=== PATIENT | male | born 1935 | race Caucasian/White ===

== ENCOUNTER 2016-06-12 17:08 | Emergency (ER) | payer OTHER ==
[~2016-06-12] VITALS: Ht 172.7 cm; Wt 90.7 kg
[~2016-06-12 17:08] MED LIST: HYDROXYZINE50 MG PO; PREDNISONE 10MG10 M1 PO
--- NOTE | 2016-06-12 18:32 | ED HAND/WRIST INJURY COMPLAINT ---
History of Present Illness General Chief Complaint: Laceration Procedure Stated Complaint: LAC TO L PINKY X 1 HR AGO. PT ON COUMADIN Source: patient Exam Limitations: no limitations Vital Signs & Intake/Output Vital Signs & Intake/Output Vital Signs Date Time Temp Pulse Resp B/P Pulse O2 O2 Flow FiO2 Ox Delivery Rate 06/12 1856 98.3 60 20 158/79 96 Room Air 06/12 1713 97.9 68 16 178/100 95 Room Air Allergies Coded Allergies: MDX - Amlodipine (AMLODIPINE) (HYPOTENSIVE 07/23/15) MDX - Epinephrine (EPINEPHRINE) (TACHYCARDIA 07/23/15) MDX - Sulfadoxine (SULFADOXINE) (HALLUCINATES 07/23/15) Reconcile Medications Labetalol HCl 100 MG TABLET 1 TAB PO BID BP (Reported) Omeprazole 20 MG CAPSULE.DR 1 CAP PO DAILY ACID REFLUX (Reported) Spironolactone 25 MG TABLET 1 TAB PO DAILY UNK (Reported) Zolpidem Tartrate 10 MG TABLET 1 TAB PO QPMP INSOMNIA (Reported) Triage Note: PT STATES HE CUT HIS LEFT PINKY FINGER ON THE POTATOE LARA AND HE IS ON COUMADIN. PT STATES HE CAN'T STOP THE BLEEDING. Triage Nurses Notes Reviewed? yes Occurred: just prior to arrival Duration: hour(s):, constant, continues in ED Timing: recent history Injury Environment: home Severity: moderate, severe Pain/Injury Location: Left: 5th finger. Method of Injury: laceration HPI: 81-year-old male comes into emergency room with complaints of bleeding to his left finger after he was cutting potatoes. Cut his finger by accident. Mild throbbing pain. Patient is on Coumadin. Patient has had associated bleeding. Denies any other associated symptoms. Tetanus shot the day. (DAVID PLASCENCIA) Past History Travel History Traveled to [place] past 21 day No Medical History Any Pertinent Medical History? see below for history Neurological: NOCTURNAL MYOCLONIC EVENTS Cardiovascular: AFIB, hypertension Gastrointestinal: GERD, hiatal hernia Other Medical Hx: Atrial fibrillation, hypertension History of MRSA: No History of VRE: No History of CDIFF: No Surgical History Surgical History: non-contributory Psychosocial History Who do you live with Patient/Self What is your primary language Setswana Tobacco Use: Never used ETOH Use: occasional use Illicit Drug Use: denies illicit drug use Family History Hx Contributory? No (DAVID PLASCENCIA) Review of Systems Review of Systems Constitutional: Reports: no symptoms. EENTM: Reports: no symptoms. Respiratory: Reports: no symptoms. Cardiovascular: Reports: no symptoms. GI: Reports: no symptoms. Genitourinary: Reports: no symptoms. Musculoskeletal: Reports: no symptoms. Skin: Reports: see HPI. Neurological/Psychological: Reports: no symptoms. Hematologic/Endocrine: Reports: see HPI. Immunologic/Allergic: Reports: no symptoms. All Other Systems: Reviewed and Negative (DAVID PLASCENCIA) Physical Exam Physical Exam General Appearance: well developed/nourished Head: atraumatic Eyes: Bilateral: normal appearance. Ears, Nose, Throat: normal ENT inspection, hearing grossly normal Neck: normal inspection Cardiovascular/Respiratory: no respiratory distress Back: normal inspection Hand Left: 5th finger, small skin avulsion,nothing suturable, bleeding actively, Hand Right: normal inspection, normal range of motion Neurologic/Tendon: normal sensation, normal motor functions, normal tendon functions, responds to pain, no evidence tendon injury, no pulse deficit Skin: intact, normal color, warm/dry Lymphatic: no anterior cervical kyara (DAVID PLASCENCIA) Progress Differential Diagnosis: cellulitis, contusion, fracture, gout, paronychia, septic arthritis, sprain, tenosynovitis Plan of Care: 06/12/2016 6:54:30 PM Pinky finger dressed with Kaltostat dressing and compression wrap. There is no bleeding through the dressing. Patient will leave it in place for 3 days. Return if any other concerns. Hold your Coumadin tomorrow because her INR was high the other day. Contact your regular doctor. Return if any other concerns. Wound was irrigated with peroxide and saline. (DAVID PLASCENCIA) Departure Departure Disposition: HOME OR SELF CARE Condition: Stable Clinical Impression Primary Impression: Skin avulsion Referrals: SAMY ZUNIGA MD (PCP/Family) Additional Instructions: Keep dressing in place for 3 days. Soak in warm water in 3 days to remove in her dressing. Return if any recurrent bleeding or any other concerns worsening symptoms. Please go over all results of today's visit with your primary care doctor. Contact your primary care doctor to let them know you were here in the emergency room. There may be nonspecific findings which may not be related to your visit today here in the emergency room but may require further evaluation and chronic monitoring by your primary care doctor. If you had a laceration today the chance of foreign body always remains. You should follow-up with your primary care doctor for recheck in 3-5 days for a wound check. If you had an x-ray done there is a chance that a fracture could have been missed on initial read and you should follow-up with your primary care doctor for repeat x-rays if symptoms persist. If your blood pressure was elevated here in the emergency room please have rechecked by her primary care doctor within the next 48 hours by your primary care doctor. If you were prescribed a narcotic here in the emergency room or any type of controlled substances you're not allowed to drive while taking this medication or operate any type of heavy machinery. Narcotics can make you feel lightheaded dizziness nausea and can cause constipation. You may need to flower picker a stool softener. Thank you for choosing [facility] emergency room. Please return to the emergency room immediately if you have any other concerns worsening of symptoms. Departure Forms: Customer Survey General Discharge Information (DAVID PLASCENCIA) PA/MANAGER PUBLIC Co-Sign Statement Statement: ED Attending supervision documentation- [x] I saw and evaluated the patient. I have also reviewed all the pertinent lab results and diagnostic results. I agree with the findings and the plan of care as documented in the PA's/MANAGER PUBLIC's documentation. [] I have reviewed the ED Record and agree with the PA's/MANAGER PUBLIC's documentation. [] Additions or exceptions (if any) to the PAs/MANAGER PUBLIC's note and plan are summarized below: [] (ROMMEL TORRES DO
[2016-06-12] MEDS ORDERED: SPIRONOLACTONE25 M1 PO (18:42)
[2016-06-12] MEDS ORDERED: OMEPRAZOLE20 M2 PO (18:42)
[2016-06-12] MEDS ORDERED: LABETALOL HCL100 M1 PO (18:43)
[2016-06-12] MEDS ORDERED: ZOLPIDEM TARTRA10 M1 PO (18:43)
[2016-06-12 18:56] VITALS: BP 158/79
== END 2016-06-12 19:00 ==
LOC: ERH 17:08
DX: S61.217A Laceration without foreign body of left little finger without damage to nail, initial encounter (principal); W26.8XXA Contact with other sharp object(s), not elsewhere classified, initial encounter; Z79.01 Long term (current) use of anticoagulants

== ENCOUNTER 2016-10-18 23:26 | Emergency (ER) | payer OTHER ==
[~2016-10-18] VITALS: Ht 172.7 cm; Wt 93.0 kg
[~2016-10-18 23:26] MED LIST changes: +LABETALOL HCL100 M1 PO; +OMEPRAZOLE20 M2 PO; +SPIRONOLACTONE25 M1 PO; +ZOLPIDEM TARTRA10 M1 PO
[2016-10-18 23:55] LABS: ABSOLUTE BASOPHIL COUNT 0 /CUMM (0.0-0.2); ABSOLUTE EOSINOPHIL COUNT 0.4 /CUMM (0.0-0.7); ABSOLUTE GRANULOCYTE CT 2.8 /CUMM (1.4-6.5); ABSOLUTE LYMPH COUNT 1.1 /CUMM (1.2-3.4); ABSOLUTE MONOCYTE COUNT 0.5 /CUMM (0.10-0.60); BASOPHIL % 0.8 % (0.0-2.0); EOSINOPHIL % 8.7 % (0-5); GRANULOCYTE % 57.8 % (42.2-75.2); HEMATOCRIT 38.9 % (42-52); MEAN CORPUSCULAR HGB 31.1 PG (27.0-31.0); MEAN CORPUSCULAR VOLUME 91.7 FL (80.0-94.0); MEAN PLATELET VOLUME 7.9 FL (7.4-10.4); PLATELET COUNT 201 /CUMM (130-400); RBC DISTRIBUTION WIDTH 13.9 % (11.5-14.5); RED BLOOD CELL CT 4.24 /CUMM (4.70-6.10); WHITE BLOOD CELL COUNT 4.9 /CUMM (4.8-10.8)
[2016-10-19 00:15] LABS: PT 37.3 SEC (9.4-12.5); PTT 46 SEC (25-37)
--- NOTE | 2016-10-19 00:59 | ED CARDIAC/CP/PALPITATIONS ---
History of Present Illness General Chief Complaint: Chest Pain Stated Complaint: PT C/O CHEST HEAVINESS S/P ? TAKING BP MEDS Source: patient, old records Exam Limitations: no limitations Vital Signs & Intake/Output Vital Signs & Intake/Output Vital Signs Date Time Temp Pulse Resp B/P B/P Pulse O2 O2 Flow FiO2 Mean Ox Delivery Rate 10/19 0441 52 16 140/83 97 Room Air Room Air 10/19 0243 54 16 139/78 98 Room Air 10/19 0054 97 Room Air 10/19 0054 96.6 70 18 150/82 97 Room Air 10/18 2337 98.5 62 20 176/78 97 Room Air ED Intake and Output 10/19 0000 10/18 1200 Intake Total Output Total Balance Patient 205 lb Weight Weight Reported by Patient Measurement Method Allergies Coded Allergies: MDX - Amlodipine (AMLODIPINE) (HYPOTENSIVE 07/23/15) MDX - Epinephrine (EPINEPHRINE) (TACHYCARDIA 07/23/15) MDX - Sulfadoxine (SULFADOXINE) (HALLUCINATES 07/23/15) Reconcile Medications Labetalol HCl 100 MG TABLET 1 TAB PO BID BP (Reported) Omeprazole 20 MG CAPSULE.DR 1 CAP PO DAILY ACID REFLUX (Reported) Spironolactone 25 MG TABLET 1 TAB PO DAILY UNK (Reported) Zolpidem Tartrate 10 MG TABLET 1 TAB PO QPMP INSOMNIA (Reported) Triage Note: TRIAGE: PATIENT TO ER FROM HOME REPORTS "REALIZED I FORGOT TO TAKE MY BP MED, TOOK IT LATE, THEN ABOUT 11PM I STATED HAVING CHEST PRESSURE AND SOB, BUT I THINK IT WAS RELATED TO MY BP. I KNOW I'M IN AFIB, ALWAYS IN AFIB BUT IT DOESN'T FEEL RAPID." HR:62-69 AFIB, BP:176/78, O2:97%RA, NO ACUTE DISTRESS NOTED. Triage Nurses Notes Reviewed? yes HPI: Patient had accidentally taken an extra labetalol this evening. Patient was concerned about it was laying in bed when he began to feel substernal pressure. There is no radiation. The pressure sensation lasted approximately 10 minutes in the morning away on its own. While he had the pressure sensation he rated it a 4 out of 10. It is currently a 0 out of 10. Denies any shortness of breath, nausea or vomiting. There was no diaphoresis. Patient comes in for evaluation. Past History Travel History Traveled to [place] past 21 day No Medical History Any Pertinent Medical History? see below for history Neurological: NOCTURNAL MYOCLONIC EVENTS Cardiovascular: AFIB, hypertension Gastrointestinal: GERD, hiatal hernia Other Medical Hx: Atrial fibrillation, hypertension History of MRSA: No History of VRE: No History of CDIFF: No Surgical History Surgical History: non-contributory Psychosocial History Who do you live with Patient/Self What is your primary language Russian Tobacco Use: Quit >30 days ago ETOH Use: denies use Illicit Drug Use: denies illicit drug use Family History Hx Contributory? No Review of Systems Review of Systems Constitutional: Reports: no symptoms. EENTM: Reports: no symptoms. Respiratory: Reports: no symptoms. Cardiovascular: Reports: see HPI, chest pain. GI: Reports: no symptoms. Genitourinary: Reports: no symptoms. Musculoskeletal: Reports: no symptoms. Skin: Reports: no symptoms. Neurological/Psychological: Reports: no symptoms. Hematologic/Endocrine: Reports: no symptoms. Immunologic/Allergic: Reports: no symptoms. All Other Systems: Reviewed and Negative Physical Exam Physical Exam General Appearance: well developed/nourished, alert, awake Head: atraumatic, normal appearance Eyes: Bilateral: PERRL, EOMI. Ears, Nose, Throat: normal pharynx, normal ENT inspection, hearing grossly normal Neck: normal inspection, supple, full range of motion Respiratory: normal breath sounds, chest non-tender, no respiratory distress, lungs clear Cardiovascular: regular rate/rhythm, normal peripheral pulses Gastrointestinal: normal bowel sounds, soft, non-tender, no organomegaly Back: normal inspection, normal range of motion Extremities: normal inspection, normal capillary refill, normal range of motion, no edema Neurologic/Psych: no motor/sensory deficits, awake, alert, oriented x 3, normal mood/affect Skin: intact, normal color, warm/dry Lymphatic: no anterior cervical kyara Core Measures ACS in differential dx? Yes Severe Sepsis Present: No Septic Shock Present: No Progress Differential Diagnosis: AMI, cholecystitis, costochondritis, musculoskeletal pain, myocarditis, pericarditis, pneumonia, pneumothorax, pulmonary embolism Plan of Care: Orders Procedure Date/time Status TROPONIN LEVEL 10/19 0330 Complete Telemetry/Ethylene Plant Helper 10/19 0059 Active TROPONIN LEVEL 10/19 2335 Complete PARTIAL THROMBOPLASTIN TIME 10/19 2335 Complete PROTHROMBIN TIME 10/19 2335 Complete COMPREHENSIVE METABOLIC PANEL 10/19 2335 Complete CBC WITHOUT DIFFERENTIAL 10/19 2335 Complete EKG 10/18 2328 Active Laboratory Tests 10/19/16 0329: Troponin I < 0.01 10/18/16 2344: Anion Gap 10, Estimated GFR > 60, BUN/Creatinine Ratio 17.3, Glucose 102 H, Calcium 8.7, Total Bilirubin 0.5, AST 15 L, ALT 35, Alkaline Phosphatase 60, Troponin I < 0.01, Total Protein 6.3, Albumin 3.7, Globulin 2.6, Albumin/ Globulin Ratio 1.4, PT 37.3 H, INR 3.60 H, APTT 46 H, CBC w Diff NO MAN DIFF REQ, RBC 4.24 L, MCV 91.7, MCH 31.1 H, RDW 13.9, MPV 7.9, Gran % 57.8, Lymphocytes % 22.2, Monocytes % 10.5 H, Eosinophils % 8.7 H, Basophils % 0.8, Absolute Granulocytes 2.8, Absolute Lymphocytes 1.1 L, Absolute Monocytes 0.5, Absolute Eosinophils 0.4, Absolute Basophils 0, PUBS MCHC 34.0 Initial ED EKG: AFIB, nonspecific ST T wave chg Prior EKG: unchanged Departure Departure Disposition: HOME OR SELF CARE Condition: Stable Clinical Impression Primary Impression: Chest pain, unspecified Qualifiers: Chest pain type: other chest pain Qualified Code: R07.89 - Other chest pain Referrals: NADIA GALARZA,SAMY (PCP/Family) CELIA GALARZA,TOMI Magdaleno Additional Instructions: RETURN FOR ANY CONCERNS Departure Forms: Customer Survey General Discharge Information Critical Care Note Critical Care Note Critical Care Time: non-applicable
[2016-10-19 04:41] VITALS: BP 140/83
== END 2016-10-19 04:42 ==
LOC: ERH 23:26
PROVIDERS: Emergency Medicine
DX: R07.89 Other chest pain (principal)
CPT/HCPCS: 93005; 93010

== ENCOUNTER 2018-02-11 10:02 | Emergency (ER) | payer OTHER ==
[~2018-02-11] VITALS: Ht 172.7 cm; Wt 86.2 kg
[~2018-02-11 10:02] MED LIST changes: +CIPRO500 M1 PO; +COUMADIN2.5 M1 PO; +COUMADIN5 M2 PO; +FLAGYL500 MG PO; +METAMUCIL0.52 GM PO; +MUCINEX1200 M1 PO; +MUCINEX600 M1 PO; +PROBIOTIC1 EACH PO; +VITAMIN B-121000 MC3 PO; +VITAMIN D2000 UNIT PO
--- NOTE | 2018-02-11 10:07 | ED CARDIAC/CP/PALPITATIONS ---
History of Present Illness General Chief Complaint: Dizziness Stated Complaint: DIZZY/SLOW AFIB Source: patient, old records, EMS Exam Limitations: no limitations Vital Signs & Intake/Output Vital Signs & Intake/Output Vital Signs Date Time Temp Pulse Resp B/P B/P Pulse O2 O2 Flow FiO2 Mean Ox Delivery Rate 02/11 1403 98.0 50 20 146/75 97 Room Air 02/11 1130 97.9 56 20 142/70 98 Room Air 02/11 1027 98 Room Air 02/11 1017 97.8 66 20 167/91 98 Room Air Allergies Coded Allergies: lisinopril (Intermediate, COUGH 02/23/17) Sulfa (Sulfonamide Antibiotics) (HALLUCINATE 02/23/17) epinephrine (TACHYCARDIA 02/23/17) amlodipine (COUGH 02/23/17) Reconcile Medications Ciprofloxacin HCl (Cipro) 500 MG TABLET 1 TAB PO BID diverticulitis Guaifenesin (Mucinex) 600 MG TAB.ER.12H 1 TAB PO DAILY CONGESTION (Reported) Labetalol HCl 100 MG TABLET 1 TAB PO BID BP (Reported) Metronidazole (Flagyl) 500 MG TABLET 1 TAB PO TID diverticulitis Omeprazole 20 MG CAPSULE.DR 1 CAP PO DAILY ACID REFLUX (Reported) Psyllium Husk (Metamucil) (Unknown Strength) CAPSULE 5-6 CAP PO DAILY SUPPLEMENT (Reported) Spironolactone 25 MG TABLET 1 TAB PO DAILY UNK (Reported) Warfarin Sodium (Coumadin) 5 MG TABLET 1 TAB PO AD BLOOD THINNER (Reported) Warfarin Sodium (Coumadin) 2.5 MG TABLET 1 TAB PO AD BLOOD THINNER (Reported) Zolpidem Tartrate 10 MG TABLET 1 TAB PO QPMP INSOMNIA (Reported) Triage Nurses Notes Reviewed? yes HPI: Patient had an episode of diarrhea yesterday evening. Patient then went to sleep and felt fine. He woke up this morning with spinning dizziness. Patient states he attempts to get out of bed but could not walk at all because of the dizziness. Patient called 911. Patient was found to be in a slow A. fib in the 30s. Patient received 250 mL of saline without change in his heart rate or his dizziness. Patient then received 0.5 mg of IV atropine which increased his heart rate into the 60s and the dizziness resolved. En route to the emergency department he had an approximate three-minute episode of substernal chest heaviness. There is no radiation. There are no aggravating or mitigating factors. He rated the pain at 4 out of 10 and is currently gone. This episode of chest pain and his EKG remained A. fib with nonspecific changes but unchanged from the EKG prior to or after the chest pain. Past History Medical History Any Pertinent Medical History? see below for history Neurological: NOCTURNAL MYOCLONIC EVENTS EENT: NONE Cardiovascular: AFIB, hypertension Respiratory: NONE Gastrointestinal: GERD, hiatal hernia Hepatic: NONE Renal: NONE Musculoskeletal: NONE Psychiatric: NONE Endocrine: NONE Blood Disorders: NONE Cancer(s): NONE LEGAL COLLECTOR/Reproductive: NONE Other Medical Hx: Atrial fibrillation, hypertension History of MRSA: No History of VRE: No History of CDIFF: No Surgical History Surgical History: cholecystectomy, cataract removal, hernia repair-inguinal, LEFT KNEE ARTHROSCOPY Psychosocial History Who do you live with Patient/Self What is your primary language Armenian Tobacco Use: Never used ETOH Use: denies use Illicit Drug Use: denies illicit drug use Family History Hx Contributory? No Review of Systems Review of Systems Constitutional: Reports: no symptoms. EENTM: Reports: no symptoms. Respiratory: Reports: no symptoms. Cardiovascular: Reports: see HPI, chest pain. GI: Reports: see HPI, diarrhea (YESTERDAY). Genitourinary: Reports: no symptoms. Musculoskeletal: Reports: no symptoms. Skin: Reports: no symptoms. Neurological/Psychological: Reports: see HPI, ataxia. Hematologic/Endocrine: Reports: no symptoms. Immunologic/Allergic: Reports: no symptoms. All Other Systems: Reviewed and Negative Physical Exam Physical Exam General Appearance: well developed/nourished, alert, awake, mild distress Head: atraumatic Eyes: Bilateral: PERRL, EOMI. Ears, Nose, Throat: normal pharynx, DRY MUCOSA Neck: normal inspection, supple, full range of motion Respiratory: normal breath sounds, chest non-tender, no respiratory distress, lungs clear Cardiovascular: bradycardia, irregularly irregular Gastrointestinal: normal bowel sounds, soft, non-tender, no organomegaly Back: normal inspection, normal range of motion Extremities: normal inspection, normal capillary refill, normal range of motion, no edema Neurologic/Psych: no motor/sensory deficits, awake, alert, oriented x 3, normal gait Skin: intact, normal color, warm/dry Lymphatic: no anterior cervical kyara Core Measures ACS in differential dx? Yes No ASA d/t PT STATES HE CAN'T TAKE CVA/TIA Diagnosis No Sepsis Present: No Sepsis Focused Exam Completed? No Progress Differential Diagnosis: AMI, atrial fibrillation, myocarditis, pericarditis, pneumonia, pneumothorax Plan of Care: Orders Procedure Date/time Status Heart Healthy Diet 02/11 D Active TROPONIN LEVEL 02/11 1300 Complete EKG 02/11 1300 Active Telemetry/Salon/Spa Manager 02/11 1008 Active TROPONIN LEVEL 02/11 1008 Complete PARTIAL THROMBOPLASTIN TIME 02/11 1008 Complete PROTHROMBIN TIME 02/11 1008 Complete COMPREHENSIVE METABOLIC PANEL 02/11 1008 Complete CBC WITHOUT DIFFERENTIAL 02/11 1008 Complete EKG 02/11 1008 Active Laboratory Tests 02/11/18 1304: Troponin I < 0.01 02/11/18 1019: Anion Gap 10, Estimated GFR > 60, BUN/Creatinine Ratio 19.0, Glucose 111 H, Calcium 9.1, Total Bilirubin 1.3, AST 29, ALT 67, Alkaline Phosphatase 59, Troponin I < 0.01, Total Protein 6.9, Albumin 4.2, Globulin 2.7, Albumin/ Globulin Ratio 1.6, PT 23.2 H, INR 2.11 H, APTT 36, CBC w Diff NO MAN DIFF REQ , RBC 4.66 L, MCV 92.1, MCH 31.6 H, MCHC 34.3, RDW 14.1, MPV 7.6, Gran % 82.2 H, Lymphocytes % 8.7 L, Monocytes % 5.4, Eosinophils % 3.3, Basophils % 0.4, Absolute Granulocytes 5.6, Absolute Lymphocytes 0.6 L, Absolute Monocytes 0.4, Absolute Eosinophils 0.2, Absolute Basophils 0 Diagnostic Imaging: Viewed by Me: Radiology Read. Discussed w/RAD: Radiology Read. CXR Impression: PATIENT: SCOTTIE CARRANZA PRESENT AGE: 82 PATIENT ACCOUNT NO: [id number] : 35 LOCATION: [facility] ORDERING PHYSICIAN: Justin Quiros MD SERVICE DATE: 02/11/18 EXAM TYPE: RAD - XRY- PORTABLE CHEST XRAY EXAMINATION: XR PORTABLE CHEST CLINICAL INFORMATION: Chest pain COMPARISON: 10/12/2014 TECHNIQUE: Portable frontal view of the chest was obtained. FINDINGS: Lungs are well expanded and grossly clear. No pulmonary edema, consolidation or pleural effusion. Cardiac silhouette is chronically enlarged. Mild atherosclerosis of the aortic arch. The visualized bones are intact. IMPRESSION: - No acute pulmonary disease compared to 10/12/2014. - Chronic cardiomegaly DICTATED BY: Iron Perez MD DATE/TIME DICTATED:02/11/181056 SENIOR COMPUTER SPECIALIST:MIHAELA DATE/TIME TRANSCRIBED:02/11/181056 CONFIDENTIAL, DO NOT COPY WITHOUT APPROPRIATE AUTHORIZATION. <Electronically signed in Other Vendor System> SIGNED BY: Iron Perez MD 02/11/18 1102 Pre-Hospital EKG: AFIB, nonspecific ST T wave chg Initial ED EKG: a. FIB AT 63, NONSPECIFIC st-t CHANGES, NO CHANGE FROM THE PRIOR ekg. Prior EKG: unchanged Repeat EKG: unchanged Rhythm Strip: atrial fibrillation Comments: Discussed with Dr. Salinas, will obtain a second set of enzymes and as long as they are also normal then we'll ambulate the patient. As long as he does fine, we will stop the labetalol and he will be stable for discharge with follow-up with Dr. Cullen. Repeat troponin is still negative. Patient ambulated in the emergency department without difficulty. Patient is stable for discharge at this time. Departure Departure Disposition: HOME OR SELF CARE Condition: Stable Clinical Impression Primary Impression: Bradycardia Referrals: Tiffani Lopez MD (PCP/Family) Moses Cullen MD Additional Instructions: Stop the labetalol. Follow-up with Dr. Cullen on Tuesday. Return if symptoms return or for any concerns. Departure Forms: Customer Survey General Discharge Information Critical Care Note Critical Care Note Critical Care Time: non-applicable
[2018-02-11 10:44] LABS: ABSOLUTE BASOPHIL COUNT 0 /CUMM (0.0-0.2); ABSOLUTE EOSINOPHIL COUNT 0.2 /CUMM (0.0-0.7); ABSOLUTE GRANULOCYTE CT 5.6 /CUMM (1.4-6.5); ABSOLUTE LYMPH COUNT 0.6 /CUMM (1.2-3.4); ABSOLUTE MONOCYTE COUNT 0.4 /CUMM (0.10-0.60); BASOPHIL % 0.4 % (0.0-2.0); EOSINOPHIL % 3.3 % (0-5); GRANULOCYTE % 82.2 % (42.2-75.2); HEMATOCRIT 42.9 % (42-52); MEAN CORPUSCULAR HGB 31.6 PG (27.0-31.0); MEAN CORPUSCULAR HGB CONC 34.3 G/DL (33.0-37.0); MEAN CORPUSCULAR VOLUME 92.1 FL (80.0-94.0); MEAN PLATELET VOLUME 7.6 FL (7.4-10.4); PLATELET COUNT 232 /CUMM (130-400); RBC DISTRIBUTION WIDTH 14.1 % (11.5-14.5); RED BLOOD CELL CT 4.66 /CUMM (4.70-6.10); WHITE BLOOD CELL COUNT 6.8 /CUMM (4.8-10.8)
[2018-02-11 10:50] LABS: PT 23.2 SEC (9.4-12.5); PTT 36 SEC (25-37)
--- NOTE | 2018-02-11 11:02 | RADIOLOGY REPORT ---
EXAMINATION: XR PORTABLE CHEST CLINICAL INFORMATION: Chest pain COMPARISON: 10/12/2014 TECHNIQUE: Portable frontal view of the chest was obtained. FINDINGS: Lungs are well expanded and grossly clear. No pulmonary edema, consolidation or pleural effusion. Cardiac silhouette is chronically enlarged. Mild atherosclerosis of the aortic arch. The visualized bones are intact. IMPRESSION: - No acute pulmonary disease compared to 10/12/2014. - Chronic cardiomegaly
[2018-02-11 14:03] VITALS: BP 146/75
== END 2018-02-11 14:10 ==
LOC: ERH 10:02
PROVIDERS: Emergency Medicine
DX: R00.1 Bradycardia, unspecified (principal); R42 Dizziness and giddiness; R07.2 Precordial pain; I48.91 Unspecified atrial fibrillation; I10 Essential (primary) hypertension; Z79.01 Long term (current) use of anticoagulants
CPT/HCPCS: 71045; 93005; 93010; 96360